=== PATIENT | female | born 1985 | race Caucasian/White ===

== ENCOUNTER 2022-11-24 19:07 | Emergency (ER) | payer MEDICAID ==
[~2022-11-24] VITALS: Ht 157.5 cm; Wt 80.0 kg
[2022-11-24 19:44] LABS: BASOPHILS # (AUTO) 0.1 X10'3 (0-0.2); BASOPHILS % (AUTO) 0.7 % (0-1); EOSINOPHILS # (AUTO) 0.2 X10'3 (0-0.9); EOSINOPHILS % (AUTO) 1.9 % (0-6); HEMATOCRIT 48.5 % (35.0-45.0); HEMOGLOBIN 16.6 g/dl (12.0-16.0); LYMPHOCYTES % (AUTO) 8.2 % (21-51); MEAN CORPUSCULAR HEMOGLOBIN 32.5 PG (27.0-31.0); MEAN CORPUSCULAR HGB CONC 34.3 g/dL (33.0-36.5); MEAN CORPUSCULAR VOLUME 94.6 FL (78-98); MEAN PLATELET VOLUME 6.9 FL (7.4-10.4); MONOCYTES # (AUTO) 0.9 X10'3 (0-0.9); MONOCYTES % (AUTO) 7.1 % (2-12); NEUTROPHILS # (AUTO) 9.8 X10'3 (1.8-7.7); NEUTROPHILS % (AUTO) 82.1 % (42-75); PLATELET COUNT 350 X10'3 (140-440); RED BLOOD COUNT 5.12 X10'6 (4.20-5.60); RED CELL DISTRIBUTION WIDTH 13.8 % (11.5-14.5)
[2022-11-24 19:52] LABS: ALANINE AMINOTRANSFERASE 54 U/L (12-78); ALBUMIN 4.1 G/DL (3.4-5.0); ALKALINE PHOSPHATASE 72 IU/L (46-116); ANION GAP 13 (8-16); ASPARTATE AMINO TRANSFERASE 36 U/L (10-37); BILIRUBIN,TOTAL 0.3 MG/DL (0.1-1.0); BLOOD UREA NITROGEN 9 MG/DL (7-18); BUN/CREATININE RATIO 10.5 (10.0-20.0); CALCIUM 9.1 MG/DL (8.5-10.1); CHLORIDE 101 MMOL/L (99-107); CREATININE 0.86 MG/DL (0.40-0.90); GLUCOSE 120 MG/DL (70-104); LIPASE 154 U/L (73-393); SODIUM 137 MMOL/L (135-145); TOTAL CARBON DIOXIDE 23.1 MMOL/L (24-32); TOTAL PROTEIN 8.1 G/DL (6.4-8.2); eGFR 74 ML/MIN
[2022-11-24] MEDS ORDERED: ketorolac trometh. 30mg/ml inj. IV ONE (22:50)
[2022-11-24] MEDS ORDERED: diphenhydrAMINE 50 mg/ml inj IV ONE (22:50)
[2022-11-24] MEDS ORDERED: normal saline 1000ml 1,000 ML IV ONE ×2 (22:50)
[2022-11-24] MEDS ORDERED: metoclopramide 5 mg/ml inj IV ONE (22:50)
[2022-11-24] MEDS ORDERED: diazepam inj 5 MG/ML inj. IV ONE (22:50)
[2022-11-25 00:42] VITALS: BP 148/65
== END 2022-11-25 00:43 | disposition home or self-care (01) ==
LOC: ER 19:08
DX: G43.909 Migraine, unspecified, not intractable, without status migrainosus (principal); K22.6 Gastro-esophageal laceration-hemorrhage syndrome; K92.0 Hematemesis
CPT/HCPCS: 36415; 80053; 83690; 85025; 96361; 96374; 96375; 99284; J1200; J1885; J2765; J3360; J7030